=== PATIENT | male | born 1980 | race Caucasian/White ===

== ENCOUNTER 2018-09-12 18:05 | Emergency (ER) | payer OTHER, SELFPAY ==
[2018-09-12 18:08] VITALS: BP 147/81; PULSE 96; RESP 20; TEMP 37.2; O2SAT 97
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
[2018-09-12] MEDS: IBUPROFEN 400 MG TABLET 800 MG PO (19:33)
[2018-09-12 19:40] VITALS: BP 125/79; PULSE 86; RESP 18; O2SAT 100
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
== END 2018-09-12 19:40 | disposition home or self-care (01) ==
PROVIDERS: Emergency Provider Internal Medicine
DX: S13.4XXA Sprain of ligaments of cervical spine, initial encounter (principal); S39.012A Strain of muscle, fascia and tendon of lower back, initial encounter; S29.019A Strain of muscle and tendon of unspecified wall of thorax, initial encounter; V49.49XA Driver injured in collision with other motor vehicles in traffic accident, initial encounter
CPT/HCPCS: 99282; 99283

== ENCOUNTER → 2021-03-11 13:03 | Outpatient (CLI) | payer BC, SELFPAY ==
[2021-03-11 13:39] LABS: COVID19 -Nasal RAPID POSITIVE (Negative)
== END ==
PROVIDERS: Referring Provider Nurse Practitioner Family; Visit Provider Nurse Practitioner Family
DX: U07.1 COVID-19 (principal); Z20.822 Contact with and (suspected) exposure to COVID-19
CPT/HCPCS: 87635